=== PATIENT | male | born 1975 | race American Indian/Alaskan Native ===

== ENCOUNTER 2018-06-24 22:05 | Emergency (ER) | payer BC ==
[~2018-06-24] VITALS: Ht 167.6 cm; Wt 85.7 kg
[2018-06-24 22:17] VITALS: BP_SYST 161
--- NOTE | 2018-06-24 22:38 | NUR ---
Pt ambulatory to bed 5 for evaluation
--- NOTE | 2018-06-24 22:51 | NUR ---
Dr. Ellsworth bedside for pt eval
--- NOTE | 2018-06-24 22:55 | NUR ---
Pt came into ED with family C/O lacerated forehead above left eye measuring 3.7 cm. injured during light bulb change eariler 1 - 2 hrs ago. No other complaints or injuries, noted or observed. V/S stable no s/s of acute distress. resting on gurney with rails up
[2018-06-24 23:25] VITALS: BP_SYST 161
--- NOTE | 2018-06-24 23:25 | NUR ---
Note undone in EDM - 06/25/18 at 0004 by BALTAZAR Patient given written and verbal discharge instructions and verbalizes understanding. ER discussed with patient the results and treatment provided. Patient in stable condition. ID arm band removed. Patient educated on pain management and to follow up with PMD. Pain Scale 0/10. Opportunity for questions provided and answered. Medication side effect fact sheet provided.
--- NOTE | 2018-06-24 23:25 | NUR ---
Patient given written and verbal discharge instructions and verbalizes understanding. ER MD discussed with patient the results and treatment provided. Patient in stable condition. ID arm band removed. Patient educated on pain management and to follow up with PMD. Pain Scale 0/10. Opportunity for questions provided and answered.
== END 2018-06-24 23:37 | disposition home or self-care (01) ==
LOC: SED 22:05
DX: S01.81XA Laceration without foreign body of other part of head, initial encounter (principal); R03.0 Elevated blood-pressure reading, without diagnosis of hypertension; W22.8XXA Striking against or struck by other objects, initial encounter; Y93.89 Activity, other specified; Y92.89 Other specified places as the place of occurrence of the external cause; Y99.8 Other external cause status
CPT/HCPCS: 99282; 99283